=== PATIENT | female | born 1990 | race Two or more races ===

== ENCOUNTER 2016-06-21 11:23 | Emergency (ER) | payer SELFPAY ==
--- NOTE | 2016-06-21 12:26 | ER Document Report ---
ED Medical Screen (RME) - General Stated Complaint: BACK PAIN,CHEST PAIN Time seen by provider: 12:25 Mode of Arrival: Wheelchair Information source: Patient Notes: 25-year-old female patient of Dr. Schuler is complaining of onset of low back pain, dizziness, right eye twitching and headache, and a sharp lower retrosternal chest pain that lasted just a few seconds and is now gone, while she was in the emergency department with her a at as who is a patient. She has been without her anti-inflammatory medication and antidepressant for 41 days due to lack of income. I have greeted and performed a rapid initial assessment of this patient. A comprehensive ED assessment, evaluation of the patient, analysis of test results , and completion of the medical decision making process will be conducted by additional ED providers. TRAVEL OUTSIDE OF THE [place] IN LAST 30 DAYS: No - Related Data Allergies/Adverse Reactions: No Known Allergies Allergy (Verified 07/27/14 12:44) Past Medical History Past Surgical History: Reports: Hx Oral Surgery Physical Exam - Vital signs Vitals: Temp Pulse Resp BP Pulse Ox 98.0 F 74 24 H 129/78 H 100 06/21/16 11:45 06/21/16 11:45 06/21/16 11:45 06/21/16 11:45 06/21/16 11:45 Course - Vital Signs Vital signs: Temp Pulse Resp BP Pulse Ox 98.0 F 74 24 H 129/78 H 100 06/21/16 11:45 06/21/16 11:45 06/21/16 11:45 06/21/16 11:45 06/21/16 11:45
[2016-06-21] MEDS ORDERED: IBUPROFEN 800 MG TABLET PO ONE (12:34)
[2016-06-21 13:16] LABS: ABSOLUTE EOSINOPHILS # (AUTO) 0.1 10^3/uL (0.0-0.6); ABSOLUTE LYMPHOCYTES (AUTO) 2.5 10^3/uL (0.5-4.7); ABSOLUTE MONOCYTES (AUTO) 0.4 10^3/uL (0.1-1.4); ABSOLUTE NEUT (AUTO) 4.8 10^3/uL (1.7-8.2); BASOPHILS % (AUTO) 0.3 % (0-2); EOSINOPHILS % (AUTO) 1.4 % (0-6); HEMATOCRIT 38.4 % (36.0-47.0); HEMOGLOBIN 12.8 g/dL (12.0-15.5); LYMPHOCYTES % (AUTO) 31.5 % (13-45); MEAN CORPUSCULAR HEMOGLOBIN 26.6 pg (27.0-33.4); MEAN CORPUSCULAR HGB CONC 33.2 g/dL (32.0-36.0); MEAN CORPUSCULAR VOLUME 80 fl (80-97); MONOCYTES % (AUTO) 5.6 % (3-13); RED BLOOD COUNT 4.79 10^6/uL (3.72-5.28); RED CELL DISTRIBUTION WIDTH 14.3 % (11.5-14.0); SEGMENTED NEUTROPHILS % (AUTO) 61.2 % (42-78); WHITE BLOOD COUNT 7.8 10^3/uL (4.0-10.5)
[2016-06-21 13:20] LABS: APPEARANCE,URINE SLIGHTLY-CLOUDY; BILIRUBIN,URINE NEGATIVE (NEGATIVE); GLUCOSE, URINE NEGATIVE (NEGATIVE); KETONES,URINE NEGATIVE (NEGATIVE); LEUKOCYTE ESTERASE,URINE NEGATIVE (NEGATIVE); NITRITE,URINE NEGATIVE (NEGATIVE); PROTEIN,URINE NEGATIVE (NEGATIVE); URINE SPECIFIC GRAVITY 1.015; UROBILINOGEN,URINE NEGATIVE mg/dL (<2.0)
[2016-06-21 13:47] LABS: URINE BARBITURATES SCREEN NEGATIVE; URINE METHADONE SCREEN NEGATIVE; URINE OPIATES LOW NEGATIVE; URINE PHENCYCLIDINE SCREEN NEGATIVE
[2016-06-21 13:49] LABS: ALANINE AMINOTRANSFERASE 29 U/L (9-52); ALBUMIN 4.7 g/dL (3.5-5.0); ALKALINE PHOSPHATASE 85 U/L (38-126); ANION GAP 15 (5-19); ASPARTATE AMINO TRANSFERASE 23 U/L (14-36); BILIRUBIN,TOTAL 0.7 mg/dL (0.2-1.3); BLOOD UREA NITROGEN 12 mg/dL (7-20); CALCIUM 10.2 mg/dL (8.4-10.2); CARBON DIOXIDE 27 mmol/L (22-30); CHLORIDE 98 mmol/L (98-107); CREATININE RESULT 0.58 mg/dL (0.52-1.25); GLUCOSE 92 mg/dL (75-110); POTASSIUM 4.3 mmol/L (3.6-5.0); SODIUM 140.2 mmol/L (137-145); TOTAL PROTEIN 8.2 g/dL (6.3-8.2)
--- NOTE | 2016-06-21 15:10 | ER Document Report ---
ED General - General Chief Complaint: Low Back Pain Stated Complaint: BACK PAIN,CHEST PAIN Mode of Arrival: Wheelchair Information source: Patient Notes: Patient is a 25-year-old female with past medical history of depression who is here with her aunt who is being admitted and states that she is "stressed". She denies any suicidal ideation, auditory or visual hallucinations. Patient states she has been off duloxetine/Cymbalta for 1 week secondary to cost. Patient states she has had some back and leg pain which she states she suffers chronically with. She also states some intermittent substernal nonradiating chest "sharpness". She denies any shortness of breath, nausea, vomiting, fevers , calf pain or leg swelling, recent trips or travel. She does not know her family history. TRAVEL OUTSIDE OF THE [place] IN LAST 30 DAYS: No - HPI Onset: Other - See above Onset/Duration: Gradual Quality of pain: Other - See above Severity: Mild Pain Level: Denies Associated symptoms: Other - See above Exacerbated by: Denies Relieved by: Denies Similar symptoms previously: No Recently seen / treated by doctor: Yes - Related Data Allergies/Adverse Reactions: No Known Allergies Allergy (Verified 06/21/16 12:36) Past Medical History - General Information source: Patient - Social History Smoking Status: Current Some Day Smoker Chew tobacco use (# tins/day): No Frequency of alcohol use: Rare Drug Abuse: None Family History: Reviewed & Not Pertinent Patient has suicidal ideation: No Patient has homicidal ideation: No Renal/ Medical History: Denies: Hx Peritoneal Dialysis Past Surgical History: Reports: Hx Oral Surgery Review of Systems - Review of Systems Constitutional: denies: Fever EENT: denies: Eye discharge, Nose discharge Respiratory: denies: Short of breath Gastrointestinal: denies: Vomiting Genitourinary: denies: Dysuria Musculoskeletal: denies: Leg swelling Skin: Other - no hives. denies: Rash Neurological/Psychological: Other - no slurred speech -: Yes All other systems reviewed and negative Physical Exam - Vital signs Vitals: Temp Pulse Resp BP Pulse Ox 98.0 F 74 24 H 129/78 H 100 06/21/16 11:45 06/21/16 11:45 06/21/16 11:45 06/21/16 11:45 06/21/16 11:45 Notes: Reviewed vital signs and nursing note as charted by RN. CONSTITUTIONAL: Alert and oriented and responds appropriately to questions. Well -appearing; well-nourished HEAD: Normocephalic; atraumatic ENT: Normal nose; no rhinorrhea; no thyroid swelling palpated; moist mucous membranes; pharynx without lesions noted NECK: Supple without meningismus; non-tender; no cervical lymphadenopathy CARD: Regular rate and rhythm; no murmurs, no clicks, no rubs, no gallops; symmetric distal pulses RESP: Normal chest excursion without splinting or tachypnea; breath sounds clear and equal bilaterally; no wheezes, no rhonchi, no rales ABD/GI: Normal bowel sounds; non-distended; soft, non-tender BACK: The back appears normal and is non-tender to palpation, there is no CVA tenderness EXT: Normal ROM in all joints; non-tender to palpation; no cyanosis, no effusions, no edema SKIN: Normal color for age and race; warm; dry; good turgor; capillary refill < 2 seconds; no acute lesions noted NEURO: CN II through XII are intact. Moves all extremities equally; Motor and sensory function intact PSYCH: The patient's mood and manner are appropriate. Grooming and personal hygiene are appropriate. Course - Re-evaluation Re-evalutation: 06/21/16 15:05 Given the history and physical examination satting 100%, with a heart rate of 74 , with no real obvious risk factors, in this well-appearing patient in no acute distress, with an EKG as recorded, I believe the risk of PE, aortic dissection, and ACS to be extremely unlikely. EKG shows a heart rate 67, normal sinus rhythm, normal axis, no obvious ST elevation or depression. Partially inverted T-wave in lead V2 and inverted T- wave in lead 3. Chest x-ray shows normal heart, normal mediastinum, no fractures, normal lung huitron, no pneumothorax. I called and spoke to the patient's primary care physician, who is asked me to start the patient on 50 mg of sertraline daily with follow-up in his office. Patient is pleased with this plan. I do not believe patient requires further workup at this time. Labs that were ordered in triage are unremarkable at this time. - Vital Signs Vital signs: Temp Pulse Resp BP Pulse Ox 98.0 F 74 24 H 129/78 H 100 03/06/17 11:45 06/21/16 11:45 06/21/16 11:45 06/21/16 11:45 06/21/16 11:45 - Laboratory Result Diagrams: 06/21/16 12:55 06/21/16 12:55 Laboratory results interpreted by me: 06/21/16 06/21/16 12:55 12:55 MCH 26.6 L RDW 14.3 H Urine Blood LARGE H Discharge - Discharge Clinical Impression: Atypical chest pain Back pain Qualifiers: Back pain location: low back pain Chronicity: chronic Back pain laterality: right Sciatica presence: without sciatica Qualified Code(s): M54.5 - Low back pain; G89.29 - Other chronic pain Condition: Good Disposition: HOME, SELF-CARE Additional Instructions: Come back immediately for any return of increased pain, change in location or quality of pain, weakness or numbness, shortness of breath, fevers, or any other acute problems. Please start the sertraline 50 mg daily and follow-up with your primary care physician for increased dosages as we have set up for you.. You can take Motrin [id number] for your pain. Prescriptions: Sertraline HCl 50 mg PO DAILY #30 tablet
[2016-06-21 15:39] VITALS: BP 130/76
--- NOTE | 2016-06-21 20:46 | EKG REPORT ---
SEVERITY:- NORMAL ECG - SINUS RHYTHM : Confirmed by: Mohamud Galloway 21-Jun-2016 20:45:28
== END 2016-06-21 15:38 | disposition home or self-care (01) ==
LOC: ER 11:23
DX: R07.89 Other chest pain (principal); M54.5 Low back pain; F17.200 Nicotine dependence, unspecified, uncomplicated
CPT/HCPCS: 36415; 71020; 80053; 80307; 81001; 84703; 85025; 93005; 93010; 99284

== ENCOUNTER 2016-09-01 21:04 | Emergency (ER) | payer SELFPAY ==
[2016-09-01 23:01] VITALS: BP 141/83
== END 2016-09-02 02:10 | disposition left against medical advice (07) ==
LOC: ER 21:04
DX: Z53.21 Procedure and treatment not carried out due to patient leaving prior to being seen by health care provider (principal)

== ENCOUNTER 2017-10-14 11:51 | Emergency (ER) | payer SELFPAY ==
[2017-10-14 12:04] VITALS: BP 132/78
--- NOTE | 2017-10-14 12:47 | ER Document Report ---
HPI - HPI Patient complains to provider of: Abscess under left armpit Onset: This afternoon Pain Level: 4 Context: 27-year-old female has an abscess under her left armpit that drained while she was waiting to be seen. She has a history of hidradenitis suppurativa without surgery. No fever or chills. Associated Symptoms: None Exacerbated by: Denies Relieved by: Denies Similar symptoms previously: No Recently seen / treated by doctor: No - ROS ROS below otherwise negative: Yes Systems Reviewed and Negative: Yes All other systems reviewed and negative - REPRODUCTIVE Reproductive: DENIES: : Past Medical History - General Information source: Patient - Social History Smoking Status: Current Some Day Smoker Chew tobacco use (# tins/day): No Frequency of alcohol use: Rare Drug Abuse: None Lives with: Family Family History: Reviewed & Not Pertinent Patient has suicidal ideation: No Patient has homicidal ideation: No - Medical History Notes: Hidradenitis suppurativa Renal/ Medical History: Denies: Hx Peritoneal Dialysis Psychiatric Medical History: Reports: Hx Depression Past Surgical History: Reports: Hx Oral Surgery - Immunizations Hx Diphtheria, Pertussis, Tetanus Vaccination: Yes Vertical Provider Document - CONSTITUTIONAL Agree With Documented VS: Yes Exam Limitations: No Limitations - INFECTION CONTROL TRAVEL OUTSIDE OF THE [place] IN LAST 30 DAYS: No - NECK Neck: Supple - MUSCULOSKELETAL/EXTREMETIES Musculoskeletal/Extremeties: MAEW - NEURO Level of Consciousness: Awake - DERM Integumentary: Abscess - Spontaneously draining small abscess under left axilla with extensive scarring Course - Vital Signs Vital signs: Temp Pulse Resp BP Pulse Ox 98.1 F 81 18 132/78 H 100 10/14/17 12:02 10/14/17 12:02 10/14/17 12:02 10/14/17 12:02 10/14/17 12:02 Discharge - Discharge Clinical Impression: Hidradenitis suppurativa, spon draining left axilla abscess Condition: Good Disposition: HOME, SELF-CARE Instructions: Abscess ([facility]), Trimethoprim-Sulfa ([facility]), Warm Packs ([facility]) Additional Instructions: Warm compress Antibiotics Wash well with antibiotic real soap and dry dressing See the general surgeon for referral for the chronic abscesses Return to the emergency room if worse Prescriptions: Sulfamethoxazole/Trimethoprim [Sulfamethoxazole-Tmp Ds Tablet] 1 each PO BID # 14 tablet Forms: Return to Work Referrals: DEMI ESCOTO MD [ACTIVE STAFF] - Follow up as needed
== END 2017-10-14 13:00 | disposition home or self-care (01) ==
LOC: ER 11:51
DX: L73.2 Hidradenitis suppurativa (principal); L02.412 Cutaneous abscess of left axilla; F17.200 Nicotine dependence, unspecified, uncomplicated
CPT/HCPCS: 99282

== ENCOUNTER 2018-02-13 23:09 | Emergency (ER) | payer SELFPAY ==
--- NOTE | 2018-02-13 23:52 | ER Document Report ---
ED Medical Screen (RME) - General Chief Complaint: Syncope Stated Complaint: DIZZINESS Time Seen by Provider: 02/13/18 23:50 Notes: 27-year-old female, reports getting dizzy and passing out while at work. Denies history of the same. States she has eaten. States she has a headache now but denies any other complaints currently. No current daily medications. TRAVEL OUTSIDE OF THE [place] IN LAST 30 DAYS: No - Related Data Allergies/Adverse Reactions: amoxicillin Allergy (Verified 10/14/17 11:52) Past Medical History Renal/ Medical History: Denies: Hx Peritoneal Dialysis Psychiatric Medical History: Reports: Hx Depression Past Surgical History: Reports: Hx Oral Surgery - Immunizations Hx Diphtheria, Pertussis, Tetanus Vaccination: Yes Physical Exam - Vital signs Vitals: Temp Pulse Resp BP Pulse Ox 98.1 F 84 18 127/78 H 99 02/13/18 23:10 02/13/18 23:10 02/13/18 23:10 02/13/18 23:10 02/13/18 23:10 - General General appearance: Appears well, Alert In distress: None - Cardiovascular Rhythm: Regular. No: Tachycardia Heart sounds: Normal auscultation, S1 appreciated, S2 appreciated Course - Vital Signs Vital signs: Temp Pulse Resp BP Pulse Ox 98.1 F 84 18 127/78 H 99 02/13/18 23:10 02/13/18 23:10 02/13/18 23:10 02/13/18 23:10 02/13/18 23:10
[2018-02-14 00:28] LABS: ABSOLUTE BASOPHILS # (AUTO) 0.1 10^3/uL (0.0-0.2); ABSOLUTE EOSINOPHILS # (AUTO) 0.1 10^3/uL (0.0-0.6); ABSOLUTE LYMPHOCYTES (AUTO) 3.2 10^3/uL (0.5-4.7); ABSOLUTE MONOCYTES (AUTO) 0.7 10^3/uL (0.1-1.4); ABSOLUTE NEUT (AUTO) 6.7 10^3/uL (1.7-8.2); BASOPHILS % (AUTO) 0.7 % (0-2); HEMATOCRIT 42.6 % (36.0-47.0); HEMOGLOBIN 14.2 g/dL (12.0-15.5); LYMPHOCYTES % (AUTO) 29.4 % (13-45); MEAN CORPUSCULAR HEMOGLOBIN 26.7 pg (27.0-33.4); MEAN CORPUSCULAR HGB CONC 33.3 g/dL (32.0-36.0); MEAN CORPUSCULAR VOLUME 80 fl (80-97); MONOCYTES % (AUTO) 6.7 % (3-13); PLATELET COUNT 401 10^3/uL (150-450); RED BLOOD COUNT 5.32 10^6/uL (3.72-5.28); RED CELL DISTRIBUTION WIDTH 14.1 % (11.5-14.0); SEGMENTED NEUTROPHILS % (AUTO) 62.2 % (42-78); TOTAL CELLS COUNTED % (AUTO) 100 %; WHITE BLOOD COUNT 10.8 10^3/uL (4.0-10.5)
[2018-02-14 00:34] LABS: APPEARANCE,URINE CLOUDY; BILIRUBIN,URINE NEGATIVE (NEGATIVE); COLOR,URINE YELLOW; GLUCOSE, URINE NEGATIVE (NEGATIVE); KETONES,URINE NEGATIVE (NEGATIVE); LEUKOCYTE ESTERASE,URINE LARGE (NEGATIVE); NITRITE,URINE NEGATIVE (NEGATIVE); PROTEIN,URINE NEGATIVE (NEGATIVE); URINE SPECIFIC GRAVITY 1.018; UROBILINOGEN,URINE NEGATIVE mg/dL (<2.0)
[2018-02-14 00:50] LABS: ANION GAP 13 (5-19); BLOOD UREA NITROGEN 11 mg/dL (7-20); CALCIUM 10.2 mg/dL (8.4-10.2); CARBON DIOXIDE 30 mmol/L (22-30); CHLORIDE 98 mmol/L (98-107); GLUCOSE 95 mg/dL (75-110); POTASSIUM 4.3 mmol/L (3.6-5.0); SODIUM 140.5 mmol/L (137-145)
--- NOTE | 2018-02-14 02:54 | ER Document Report ---
ED General - General Chief Complaint: Syncope Stated Complaint: DIZZINESS Time Seen by Provider: 02/13/18 23:50 Notes: Patient is a 27-year-old female who presents to the emergency department after an episode of passing out at work. Her coworker witnessed her. She denies hitting her head. She said she did not fully lose consciousness. When she passed out, she voided on herself. She does complain of dysuria. The pharmacist who works with her checked her blood pressure and it was normal. Her blood sugar was also checked and her blood sugar was normal. This has not happened before. She denies nausea, vomiting, diarrhea, or fever. She has no prior medical history other than hypoglycemia. She has a history of depression , but is not currently taking her medications. TRAVEL OUTSIDE OF THE [place] IN LAST 30 DAYS: No - Related Data Allergies/Adverse Reactions: amoxicillin Allergy (Verified 10/14/17 11:52) Past Medical History - General Information source: Patient - Social History Smoking Status: Current Every Day Smoker Chew tobacco use (# tins/day): No Frequency of alcohol use: Rare Drug Abuse: None Family History: Reviewed & Not Pertinent Patient has suicidal ideation: No Patient has homicidal ideation: No Renal/ Medical History: Denies: Hx Peritoneal Dialysis Psychiatric Medical History: Reports: Hx Depression Past Surgical History: Reports: Hx Oral Surgery - Immunizations Hx Diphtheria, Pertussis, Tetanus Vaccination: Yes Review of Systems - Review of Systems Notes: REVIEW OF SYSTEMS: CONSTITUTIONAL : Denies fever, chills, or sweats. Denies recent illness. EENT: Denies eye, ear, throat, or mouth pain or symptoms. Denies nasal or sinus congestion. CARDIOVASCULAR: Denies chest pain. RESPIRATORY: Denies cough, cold, or chest congestion. Denies shortness of breath, difficulty breathing, or wheezing. GASTROINTESTINAL: Denies abdominal pain. Denies nausea, vomiting, or diarrhea. Denies constipation. Last BM: Today GENITOURINARY: Positive for painful urination and burning. Denies difficulty urinating, frequency, or blood in urine. FEMALE GENITOURINARY: Denies vaginal bleeding, abnormal or irregular periods. LMP: February 04 MUSCULOSKELETAL: Denies neck or back pain or joint pain or swelling. SKIN: Denies rash or skin lesions. HEMATOLOGIC : Denies easy bruising or bleeding. LYMPHATIC: Denies swollen, enlarged glands. NEUROLOGICAL: Denies altered mental status or loss of consciousness. Denies headache. Denies weakness or paralysis or loss of use of either side. Denies problems with gait or speech. Denies sensory or motor loss. PSYCHIATRIC: Denies anxiety or stress or depression. ALL OTHER SYSTEMS REVIEWED AND NEGATIVE. Physical Exam - Vital signs Vitals: Temp Pulse Resp BP Pulse Ox 98.1 F 84 18 127/78 H 99 02/13/18 23:10 02/13/18 23:10 02/13/18 23:10 02/13/18 23:10 02/13/18 23:10 - Notes Notes: PHYSICAL EXAMINATION: GENERAL: Well-appearing, well-nourished and in no acute distress. HEAD: Atraumatic, normocephalic. EYES: Pupils equal round and reactive to light, extraocular movements intact, sclera anicteric, conjunctiva are normal. ENT: nares patent, oropharynx clear without exudates. Moist mucous membranes. NECK: Normal range of motion, supple without lymphadenopathy LUNGS: Breath sounds clear to auscultation bilaterally and equal. No wheezes rales or rhonchi. HEART: Regular rate and rhythm without murmurs ABDOMEN: Tenderness to mid lower abdomen. soft, normoactive bowel sounds. No guarding, no rebound. No masses appreciated. EXTREMITIES: Normal range of motion, no pitting or edema. No cyanosis. NEUROLOGICAL: No focal neurological deficits. Moves all extremities spontaneously and on command. PSYCH: Normal mood, normal affect. SKIN: Warm, Dry, normal turgor, no rashes or lesions noted. Course - Re-evaluation Re-evalutation: 02/14/18 02:00 To the patient's complaint of urinary incontinence while passing out, and complaints of burning while urinating, I suspect she may have a urinary tract infection at this time awaiting labs for confirmation. I do not suspect the patient has any life-threatening issues at this time. Her EKG is remarkable and her blood sugar is 101 in the emergency department. 02/14/18 02:54 Patient's laboratory studies shows large leukocytes in her urine. She has a urinary tract infection. She will be sent home on Keflex. Verbal discharge instructions were given, she verbalized understanding. - Vital Signs Vital signs: Temp Pulse Resp BP Pulse Ox 98.3 F 75 18 129/65 H 100 02/14/18 03:34 02/14/18 03:34 02/14/18 03:34 02/14/18 03:34 02/14/18 03:34 - Laboratory Result Diagrams: 02/14/18 00:14 02/14/18 00:14 Laboratory results interpreted by me: 02/14/18 02/14/18 00:14 00:14 WBC 10.8 H RBC 5.32 H MCH 26.7 L RDW 14.1 H Urine Blood SMALL H Ur Leukocyte Esterase LARGE H Discharge - Discharge Clinical Impression: Urinary tract infection Condition: Stable Disposition: HOME, SELF-CARE Additional Instructions: Your urine shows findings consistent with a urinary tract infection. Please take all the antibiotics as directed even if your symptoms have improved. Please follow-up with your primary care physician as needed. Return to emergency room if you develop fever >101F, persistent vomiting, become lethargic , have severe pain in your sides, or any other symptoms that are concerning to you. Prescriptions: Cephalexin Monohydrate [Keflex 500 mg Capsule] 500 mg PO Q6H 7 Days #28 capsule Referrals: DARRIAN DEGROOT MD [Primary Care Provider] - Follow up as needed
[2018-02-14] MEDS ORDERED: CEPHALEXIN 500 MG CAPSULE PO ONE (02:59)
[2018-02-14 03:35] VITALS: BP 129/65
--- NOTE | 2018-02-14 10:37 | EKG REPORT ---
SEVERITY:- NORMAL ECG - SINUS RHYTHM : Confirmed by: Alba Mckeon MD 14-Feb-2018 10:36:40
== END 2018-02-14 03:35 | disposition home or self-care (01) ==
LOC: ER 23:09
DX: N39.0 Urinary tract infection, site not specified (principal); R55 Syncope and collapse; R30.0 Dysuria; R32 Unspecified urinary incontinence; F17.200 Nicotine dependence, unspecified, uncomplicated; Z88.0 Allergy status to penicillin
CPT/HCPCS: 36415; 80048; 81001; 81025; 82962; 85025; 93005; 93010; 99284

== ENCOUNTER 2018-04-17 18:09 | Emergency (ER) | payer SELFPAY ==
[2018-04-17] MEDS ORDERED: FLUCONAZOLE 100 MG TABLET PO ONE (18:56)
--- NOTE | 2018-04-17 19:00 | ER Document Report ---
ED General - General Chief Complaint: Abdominal Pain Stated Complaint: URINATION PAIN Time Seen by Provider: 04/17/18 18:48 TRAVEL OUTSIDE OF THE [place] IN LAST 30 DAYS: No - HPI Notes: Patient is a 27-year-old female that presents to the emergency department for chief complaint of abdominal pain. Patient reports lower abdominal pain and pressure with dysuria for the last few months. She has been treated for urinary tract infection but states his symptoms have not completely resolved. They do wax and wane in intensity. Today she stated she got lightheaded and had one episode of nausea and vomiting. She denies full syncope. She also reports external vaginal irritation and itching. She denies history of yeast infection in the past. She denies any vaginal discharge or concern for STD Past Medical History: Anxiety, depression, OCD Past Surgical History: [place] teeth removal Social History: Daily tobacco, occasional alcohol, denies drug use Family History: Reviewed and noncontributory for presenting illness Allergies: Reviewed, see documented allergy list. REVIEW OF SYSTEMS: CONSTITUTIONAL : No fever No chills No diaphoresis No recent illness EENT: No vision changes No congestion No sore throat CARDIOVASCULAR: No chest pain No palpitations RESPIRATORY: No shortness of breath No cough No difficulty breathing GASTROINTESTINAL: abdominal pain nausea vomiting No diarrhea GENITOURINARY: dysuria No hematuria No difficulty urinating MUSCULOSKELETAL: No back pain No leg pain No arm pain SKIN: No rashes No lesions LYMPHATIC: No swollen, enlarged glands. NEUROLOGICAL: No lightheadedness No headache No weakness No paresthesias PSYCHIATRIC: No anxiety No depression PHYSICAL EXAMINATION: Vital signs reviewed, nursing noted reviewed. GENERAL: Well-appearing, well-nourished and in no acute distress. HEAD: Atraumatic, normocephalic. EYES: Eyes appear normal, extraocular movements intact, sclera anicteric, conjunctiva are normal. ENT: nares patent, oropharynx clear without exudates. Moist mucous membranes. NECK: Normal range of motion, supple without lymphadenopathy LUNGS: Breath sounds clear to auscultation bilaterally and equal. No wheezes rales or rhonchi. HEART: Regular rate and rhythm without murmurs ABDOMEN: Soft, nontender, normoactive bowel sounds. No rebound, guarding, or rigidity. No masses appreciated. EXTREMITIES: Nontender, good range of motion, no pitting or edema. NEUROLOGICAL: No focal neurological deficits. Moves all extremities spontaneously Motor and sensory grossly intact on exam. PSYCH: Normal mood, normal affect. SKIN: Warm, Dry, normal turgor, no rashes or lesions noted on exposed skin - Related Data Allergies/Adverse Reactions: amoxicillin Allergy (Verified 10/14/17 11:52) Past Medical History - Social History Smoking Status: Current Every Day Smoker Family History: Reviewed & Not Pertinent Patient has suicidal ideation: No Patient has homicidal ideation: No Renal/ Medical History: Denies: Hx Peritoneal Dialysis Psychiatric Medical History: Reports: Hx Depression Past Surgical History: Reports: Hx Oral Surgery - Immunizations Hx Diphtheria, Pertussis, Tetanus Vaccination: Yes Physical Exam - Vital signs Vitals: Temp Pulse Resp BP Pulse Ox 98.9 F 68 18 134/71 H 98 04/17/18 18:16 04/17/18 18:16 04/17/18 18:16 04/17/18 18:16 04/17/18 18:16 Course - Re-evaluation Re-evalutation: 04/17/18 18:58 Vitals reviewed. Nursing notes reviewed. Patient was given Diflucan for yeast vaginitis. Urinalysis will be obtained to evaluate for urinary tract infection. 04/17/18 19:35 Urinalysis is positive for infection. Patient will be started on Macrobid. Urine culture was sent because of the continued recurrence of her urinary tract infections. Patient will be given a prescription for Diflucan as well in case her yeast symptoms are not completely resolved to take in 1 week. She will follow with her primary care doctor for reevaluation in a few days. Laboratory 04/17/18 19:00 Urine Color MELY Urine Appearance CLEAR Urine pH 5.0 Ur Specific [place] 1.024 Urine Protein 30 H Urine Glucose (UA) NEGATIVE Urine Ketones NEGATIVE Urine Blood NEGATIVE Urine Nitrite POSITIVE H Urine Bilirubin NEGATIVE Urine Urobilinogen 4.0 H Ur Leukocyte Esterase NEGATIVE Urine WBC (Auto) 10 Urine RBC (Auto) 9 Squamous Epi Cells Auto 6 Urine Mucus (Auto) RARE Urine Ascorbic Acid NEGATIVE Urine HCG, Qual NEGATIVE - Vital Signs Vital signs: Temp Pulse Resp BP Pulse Ox 98.9 F 68 18 134/71 H 98 04/17/18 18:16 04/17/18 18:16 04/17/18 18:16 04/17/18 18:16 12/31/18 18:16 - Laboratory Laboratory results interpreted by me: 04/17/18 19:00 Urine Protein 30 H Urine Nitrite POSITIVE H Urine Urobilinogen 4.0 H Discharge - Discharge Clinical Impression: Yeast vaginitis UTI (urinary tract infection) Qualifiers: Urinary tract infection type: site unspecified Hematuria presence: without hematuria Qualified Code(s): N39.0 - Urinary tract infection, site not specified Condition: Stable Disposition: HOME, SELF-CARE Instructions: Vaginal Yeast Infection ([facility]), Urinary Tract Infection ([facility]) Additional Instructions: Please return to the emergency department if you have any worsening, or concern of your symptoms. Please return to the emergency department if you develop chest pain, difficulty breathing, severe abdominal pain, or ongoing vomiting. Please follow-up with your primary care physician in 2-3 days and any other recommended physicians. If prescribed, take all medications as directed. If you have any questions or concerns do not hesitate to return the emergency department for evaluation. The first dose of Diflucan was given to you in the emergency room today. This is a medication to treat vaginal yeast infection. If you are still having vaginal itching and irritation in 7 days fill the Diflucan prescription and take the second dose. Prescriptions: Fluconazole [Diflucan] 150 mg PO ONCE PRN #1 tablet PRN Reason: Nitrofurantoin Macrocrystal [Macrodantin] 100 mg PO BID #10 capsule Forms: Elevated Blood Pressure Referrals: DARRIAN DEGROOT MD [Primary Care Provider] - Follow up in 3-5 days
[2018-04-17 19:20] LABS: APPEARANCE,URINE CLEAR; BILIRUBIN,URINE NEGATIVE (NEGATIVE); COLOR,URINE AMBER; GLUCOSE, URINE NEGATIVE (NEGATIVE); KETONES,URINE NEGATIVE (NEGATIVE); LEUKOCYTE ESTERASE,URINE NEGATIVE (NEGATIVE); NITRITE,URINE POSITIVE (NEGATIVE); PROTEIN,URINE 30 mg/dL (NEGATIVE); URINE SPECIFIC GRAVITY 1.024
[2018-04-17] MEDS ORDERED: NITROFURANTOIN MONOHYD/M-CRYST 100 MG CAPSULE PO ONE (19:38)
[2018-04-17 19:54] VITALS: BP 117/67
== END 2018-04-17 19:55 | disposition home or self-care (01) ==
LOC: ER 18:09
DX: B37.3 Candidiasis of vulva and vagina (principal); N39.0 Urinary tract infection, site not specified; R42 Dizziness and giddiness; R11.2 Nausea with vomiting, unspecified; F17.200 Nicotine dependence, unspecified, uncomplicated; Z88.0 Allergy status to penicillin
CPT/HCPCS: 99284; 81025; 81001; J8499

== ENCOUNTER 2018-08-29 18:21 | Emergency (ER) | payer SELFPAY ==
--- NOTE | 2018-08-29 19:46 | ER Document Report ---
ED Medical Screen (RME) - General Chief Complaint: Arm Pain Stated Complaint: ABDOMINAL PAIN Time Seen by Provider: 08/29/18 19:38 Primary Care Provider: DARRIAN DEGROOT MD [Primary Care Provider] - Follow up as needed Mode of Arrival: Ambulatory Information source: Patient Notes: 27-year-old female presented to ED for complaint of abdominal pain with crystals in her urine. She states she also has a Nexplanon and needs to be removed. She states he was supposed to be removed over a year ago and none of the [employer] in the area will remove it for her. They told her she need to come to the emergency room as able as it is a surgical procedure. Patient is alert oriented respirations regular and unlabored speaking in full sentences. I have greeted and performed a rapid initial assessment of this patient. A comprehensive ED assessment and evaluation of the patient, analysis of test results and completion of medical decision making process will be conducted by an additional ED providers. Dictation of this chart was performed using voice recognition software; therefore, there may be some unintended grammatical errors. TRAVEL OUTSIDE OF THE [place] IN LAST 30 DAYS: No - Related Data Allergies/Adverse Reactions: amoxicillin Allergy (Verified 10/14/17 11:52) Past Medical History Renal/ Medical History: Denies: Hx Peritoneal Dialysis Psychiatric Medical History: Reports: Hx Depression Past Surgical History: Reports: Hx Oral Surgery - Immunizations Hx Diphtheria, Pertussis, Tetanus Vaccination: Yes Physical Exam - Vital signs Vitals: Temp Pulse Resp BP Pulse Ox 98.6 F 76 20 137/73 H 99 08/29/18 19:23 08/29/18 19:23 08/29/18 19:23 08/29/18 19:23 08/29/18 19:23 Course - Vital Signs Vital signs: Temp Pulse Resp BP Pulse Ox 98.6 F 76 20 137/73 H 99 08/29/18 19:23 08/29/18 19:23 08/29/18 19:23 08/29/18 19:23 08/29/18 19:23 Doctor's Discharge - Discharge Referrals: DARRIAN DEGROOT MD [Primary Care Provider] - Follow up as needed
[2018-08-29 20:09] LABS: APPEARANCE,URINE SLIGHTLY-CLOUDY; BILIRUBIN,URINE NEGATIVE (NEGATIVE); COLOR,URINE YELLOW; GLUCOSE, URINE NEGATIVE (NEGATIVE); KETONES,URINE NEGATIVE (NEGATIVE); LEUKOCYTE ESTERASE,URINE MODERATE (NEGATIVE); NITRITE,URINE NEGATIVE (NEGATIVE); PROTEIN,URINE NEGATIVE (NEGATIVE); T.VAGINALIS (WET MOUNT) TRICHOMONAS SEEN; URINE SPECIFIC GRAVITY 1.026; UROBILINOGEN,URINE NEGATIVE mg/dL (<2.0); WBCS (WET MOUNT) 2+ WBCS SEEN; YEAST (WET MOUNT) NO YEAST SEEN
[2018-08-29 20:10] LABS: BACTERIA (WET MOUNT) 4+ BACTERIA SEEN; EPITHELIALS (WET MOUNT) 3+ EPITHELIALS SEEN; RBCS (WET MOUNT) FEW RBCS SEEN
[2018-08-29 20:18] LABS: ABSOLUTE EOSINOPHILS # (AUTO) 0.1 10^3/uL (0.0-0.6); ABSOLUTE LYMPHOCYTES (AUTO) 2.5 10^3/uL (0.5-4.7); ABSOLUTE MONOCYTES (AUTO) 0.7 10^3/uL (0.1-1.4); ABSOLUTE NEUT (AUTO) 7.2 10^3/uL (1.7-8.2); BASOPHILS % (AUTO) 0.2 % (0-2); EOSINOPHILS % (AUTO) 0.9 % (0-6); HEMATOCRIT 38.5 % (36.0-47.0); HEMOGLOBIN 12.7 g/dL (12.0-15.5); LYMPHOCYTES % (AUTO) 23.6 % (13-45); MEAN CORPUSCULAR HEMOGLOBIN 26.5 pg (27.0-33.4); MEAN CORPUSCULAR VOLUME 80 fl (80-97); MONOCYTES % (AUTO) 6.5 % (3-13); PLATELET COUNT 373 10^3/uL (150-450); RED BLOOD COUNT 4.79 10^6/uL (3.72-5.28); RED CELL DISTRIBUTION WIDTH 13.6 % (11.5-14.0); SEGMENTED NEUTROPHILS % (AUTO) 68.8 % (42-78); TOTAL CELLS COUNTED % (AUTO) 100 %; WHITE BLOOD COUNT 10.5 10^3/uL (4.0-10.5)
[2018-08-29 20:39] LABS: ALANINE AMINOTRANSFERASE 23 U/L (9-52); ALBUMIN 4.3 g/dL (3.5-5.0); ALKALINE PHOSPHATASE 69 U/L (38-126); ANION GAP 10 (5-19); ASPARTATE AMINO TRANSFERASE 20 U/L (14-36); BILIRUBIN,DIRECT 0.2 mg/dL (0.0-0.4); BILIRUBIN,TOTAL 0.6 mg/dL (0.2-1.3); BLOOD UREA NITROGEN 11 mg/dL (7-20); CARBON DIOXIDE 31 mmol/L (22-30); CHLORIDE 99 mmol/L (98-107); GLUCOSE 73 mg/dL (75-110); POTASSIUM 3.9 mmol/L (3.6-5.0); SODIUM 140.2 mmol/L (137-145); TOTAL PROTEIN 7.8 g/dL (6.3-8.2)
[2018-08-29 21:37] LABS: CHLAM PCR NOT DETECTED (NOT DETECT); GON PCR NOT DETECTED (NOT DETECT)
[2018-08-29 22:47] VITALS: BP 120/59
[2018-08-29] MEDS ORDERED: METRONIDAZOLE 500 MG TABLET PO ONE (23:18)
--- NOTE | 2018-08-29 23:19 | ER Document Report ---
ED General - General Chief Complaint: Arm Pain Stated Complaint: ABDOMINAL PAIN Time Seen by Provider: 08/29/18 19:38 Primary Care Provider: DEVI ESPANA MD [ACTIVE STAFF] - Follow up in 3-5 days Mode of Arrival: Ambulatory Notes: Patient is a 27-year-old female presents with complaint of some suprapubic discomfort as well as normal vaginal discharge. Said this been intermittent for a while. She is to be followed at [facility] but sensation down she does not follow with a refractive surgeon. She also has an Implanon in her left arm which she says was was removed a year ago but since the refractive surgeon clinic shutdown she has not followed up with anybody to have this removed. Her primary care doctor is Dr. Cervantes. She denies any fevers. No vomiting. No other complaints at this time. No dysuria. TRAVEL OUTSIDE OF THE [place] IN LAST 30 DAYS: No - Related Data Allergies/Adverse Reactions: amoxicillin Allergy (Verified 08/29/18 22:48) Past Medical History - General Information source: Patient - Social History Smoking Status: Never Smoker Chew tobacco use (# tins/day): No Frequency of alcohol use: None Drug Abuse: None Family History: Reviewed & Not Pertinent Patient has suicidal ideation: No Patient has homicidal ideation: No Renal/ Medical History: Denies: Hx Peritoneal Dialysis Psychiatric Medical History: Reports: Hx Depression Past Surgical History: Reports: Hx Oral Surgery - Immunizations Hx Diphtheria, Pertussis, Tetanus Vaccination: Yes Review of Systems - Review of Systems Notes: My Normal Review Basic REVIEW OF SYSTEMS: CONSTITUTIONAL : Denies fever, chills, or sweats. Denies recent illness. RESPIRATORY: Denies cough, cold, or chest congestion. Denies shortness of breath, difficulty breathing, or wheezing. GASTROINTESTINAL: Prepubic abdominal pain. Denies nausea, vomiting, or diarrhea. GENITOURINARY: Denies difficulty urinating, painful urination, burning, frequency, or blood in urine. FEMALE GENITOURINARY: Suprapubic pain. Abnormal vaginal discharge. MUSCULOSKELETAL: Denies neck or back pain or joint pain or swelling. SKIN: Denies rash or skin lesions. NEUROLOGICAL: Denies altered mental status or loss of consciousness. Denies headache. Denies weakness or paralysis or loss of use of either side. Denies problems with gait or speech. Denies sensory or motor loss. ALL OTHER SYSTEMS REVIEWED AND NEGATIVE. Physical Exam - Vital signs Vitals: Temp Pulse Resp BP Pulse Ox 98.6 F 76 20 137/73 H 99 08/29/18 19:23 08/29/18 19:23 08/29/18 19:23 08/29/18 19:23 08/29/18 19:23 - Notes Notes: General Appearance: Well nourished, alert, cooperative, no acute distress, no obvious discomfort. Ill-appearing. Vitals: reviewed, See vital signs table. Eyes: PERRL, EOMI, Conjuctiva clear Mouth: No decreasd moisture Lungs: No wheezing, No rales, No rhonci, No accessory muscle use, good air exchange bilaterally. Heart: Normal rate, Regular rythm, No murmur, no rub Abdomen: Normal BS, soft, No rigidity,very mild suprapubic tenderness to palpation, No guarding, no rebound Pelvic exam: Pelvic exam performed by mid-level. Please refer to her notes for detailed pelvic exam. Extremities: strength 5/5 in all extremities, good pulses in all extremities, redness or swelling to the left arm. I palpate what feels to be the Implanon just below the subcutaneous tissue. Skin: warm, dry, appropriate color, no rash Neuro: speech clear, oriented x 3, normal affect, responds appropriately to qu estions. Course - Re-evaluation Re-evalutation: 08/30/18 03:44 Informed patient that she is follow-up with refractive surgeon to have Implanon removed. [facility] Her pelvic exam wet prep does show evidence of bacterial vaginosis. On exam she has just very mild tenderness to palpation in suprapubic region. The remainder of abdomen is complete nontender. She clinically looks well. We will place her on Flagyl. I encouraged her follow-up with her primary care doctor or the refractive surgeon in regards to reevaluation 1 week after antibiotic treatment. I encouraged her return to ER if she has vomiting, fevers, worsening pain, redness or swelling to her arm, or she feels unwell in any way. Patient agrees with plan and will be discharged home. Dictation of this chart was performed using voice recognition software; therefore, there may be some unintended grammatical errors. - Vital Signs Vital signs: Temp Pulse Resp BP Pulse Ox 97.9 F 69 17 120/59 L 99 08/29/18 22:46 08/29/18 22:46 08/29/18 22:46 08/29/18 22:46 08/29/18 22:46 - Laboratory Result Diagrams: 08/29/18 19:55 08/29/18 19:55 Laboratory results interpreted by me: 08/29/18 08/29/18 08/29/18 19:46 19:55 19:55 MCH 26.5 L Carbon Dioxide 31 H Glucose 73 L Ur Leukocyte Esterase MODERATE H Discharge - Discharge Clinical Impression: Bacterial vaginosis, Pelvic pain, Implanon in place Condition: Good Disposition: HOME, SELF-CARE Additional Instructions: Patient follow-up with the refractive surgeon to have your Implanon removed. [facility] Their phone number is on your discharge paperwork under [facility] [place]. 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 Please call the office to make a follow-up appointment. You do have evidence of bacterial vaginosis on your wet prep. This is likely was causing the cramping type pain in the vaginal area with the discharge. Treatment is with an antibiotic. Do not drink alcohol intake and this antibiotic will make you vomit. Please have a low threshold to return to ER if you have fevers, intractable vomiting, worsening pain, or if you feel unwell in any way. Prescriptions: Metronidazole [Flagyl 500 mg Tablet] 500 mg PO BID #14 tablet Forms: Return to Work Referrals: DEVI ESPANA MD [ACTIVE STAFF] - Follow up in 3-5 days
== END 2018-08-29 23:35 | disposition home or self-care (01) ==
LOC: ER 18:21
DX: N76.0 Acute vaginitis (principal); B96.89 Other specified bacterial agents as the cause of diseases classified elsewhere; R10.2 Pelvic and perineal pain; Z79.3 Long term (current) use of hormonal contraceptives
CPT/HCPCS: 36415; 80053; 81001; 84703; 85025; 87210; 87491; 87591; 99284

== ENCOUNTER 2019-12-11 22:19 | Emergency (ER) | payer SELFPAY ==
[2019-12-11] MEDS ORDERED: TRAMADOL HCL 50 MG TABLET PO ONE (23:05)
[2019-12-11] MEDS ORDERED: CLINDAMYCIN HCL 150 MG CAPSULE PO ONE (23:05)
--- NOTE | 2019-12-11 23:09 | ER Document Report ---
ED General - General Chief Complaint: Mouth Problem Stated Complaint: MOUTH PAIN Primary Care Provider: DARRIAN DEGROOT MD [Primary Care Provider] - Follow up as needed Notes: Patient is a 29-year-old female with no significant past medical history presents the emergency department today with a chief complaint of dental pain. States this began about 5 days ago. It is the upper and lower posterior most molars on the left. States is worse with chewing food and oral intake. Palliated by nothing. States the pain is severe, shocking and shooting. Denies any radiation. Denies any difficulty breathing or trouble secretions. No ton natanael or throat swelling. No fever. No chills or night sweats. States that she has a established dentist. TRAVEL OUTSIDE OF THE [place] IN LAST 30 DAYS: No - Related Data Allergies/Adverse Reactions: amoxicillin Allergy (Verified 12/11/19 23:01) Past Medical History - Social History Smoking Status: Unknown if Ever Smoked Family History: Reviewed & Not Pertinent Renal/ Medical History: Denies: Hx Peritoneal Dialysis Psychiatric Medical History: Reports: Hx Depression Past Surgical History: Reports: Hx Oral Surgery - Immunizations Hx Diphtheria, Pertussis, Tetanus Vaccination: Yes Review of Systems - Review of Systems Constitutional: denies: Fever EENT: Mouth pain Cardiovascular: denies: Chest pain Respiratory: denies: Short of breath Gastrointestinal: denies: Abdominal pain Genitourinary: denies: Pain Female Genitourinary: denies: Vaginal discharge Musculoskeletal: denies: Neck pain Skin: denies: Lesions Hematologic/Lymphatic: denies: Easy bruising Neurological/Psychological: denies: Headaches Physical Exam - Vital signs Vitals: Temp Pulse Resp BP Pulse Ox 98.1 F 68 20 144/84 H 99 12/11/19 22:36 12/11/19 22:36 12/11/19 22:36 12/11/19 22:36 12/11/19 22:36 - General General appearance: Appears well, Alert In distress: None - HEENT Head: Normocephalic, Atraumatic Eyes: Normal Conjunctiva: Normal Extraocular movements intact: Yes Pupils: PERRL Ears: Normal External canal: Normal Tympanic membrane: Normal Nasal: Normal Mouth/Lips: Normal Mucous membranes: Normal Teeth diagram: 1 - Tender to percussion 2 - Tender to percussion. No gingival abscess formations. No significant gingival erythema or edema. No purulence. Pharynx: Normal, Other - Patent airway, handling secretions well. No sublingual or submental swelling. No trismus. Neck: Normal, Supple. No: Lymphadenopathy - Respiratory Respiratory status: No respiratory distress Chest status: Nontender Breath sounds: Normal Chest palpation: Normal - Cardiovascular Rhythm: Regular Heart sounds: Normal auscultation - Neurological Neuro grossly intact: Yes Cognition: Normal Orientation: AAOx4 - Psychological Associated symptoms: Normal affect, Normal mood Course - Re-evaluation Re-evalutation: 12/11/19 23:09 History and physical consistent with dental abscess formations. Patient be placed on clindamycin as she is penicillin allergic. We discussed clindamycin and its risks of use including but not limited to C. difficile. She will use probiotics while she takes this medicine. She will call her dentist first thing in the morning. Short course of tramadol given for pain. Counseled her regarding the importance of outpatient follow-up tomorrow and advised that she return here or any ER immediately with any new, persistent or worsening symptoms. She verbalized understood and agreed. - Vital Signs Vital signs: Temp Pulse Resp BP Pulse Ox 98.1 F 68 20 144/84 H 99 12/11/19 22:36 12/11/19 22:36 12/11/19 22:36 12/11/19 22:36 12/11/19 22:36 Discharge - Discharge Clinical Impression: Dentalgia, Dental abscess Condition: Stable Disposition: HOME, SELF-CARE Instructions: Clindamycin ([facility]), Toothache ([facility]), Oral Narcotic Medication ([facility]) Additional Instructions: Please call your dentist first thing tomorrow morning for continued care and outpatient management. Please return here or any ER immediately with any new, persistent or worsening symptoms. Prescriptions: Tramadol HCl [Ultram 50 mg Tablet] 50 mg PO Q6HP PRN #12 tablet PRN Reason: Clindamycin HCl 300 mg PO QID #39 capsule Referrals: DARRIAN DEGROOT MD [Primary Care Provider] - Follow up as needed
[2019-12-12 02:27] VITALS: BP 138/74
== END 2019-12-11 23:11 | disposition home or self-care (01) ==
LOC: ER 22:19
DX: K04.7 Periapical abscess without sinus (principal); K08.89 Other specified disorders of teeth and supporting structures; Z88.0 Allergy status to penicillin
CPT/HCPCS: 99283